=== PATIENT | female | born 1955 | race Caucasian/White ===

== ENCOUNTER 2018-06-18 06:19 | Inpatient (IN) | payer OTHER ==
[2018-06-14 09:06] VITALS: BMI 23.4
[2018-06-18] MEDS ORDERED: DEXAMETHASONE SOD PHOSPHATE 4 MG/1 ML VIAL IVPUSH PRN (07:36)
[2018-06-18] MEDS ORDERED: PROMETHAZINE HCL 25 MG/1 ML VIAL IVPB PRN (07:36)
[2018-06-18] MEDS ORDERED: ONDANSETRON 4 MG/2 ML VIAL IVPUSH PRN ×2 (07:36→10:58)
[2018-06-18] MEDS ORDERED: GENTAMICIN SO4 80 MG/2 ML VIAL ONE (07:44)
[2018-06-18] MEDS ORDERED: THROMBIN (BOVINE) 20,000 UNIT VIAL TP ONE (07:44)
[2018-06-18] MEDS ORDERED: LIDOCAINE 1%/EPI 1:100000 (20 ML MULTI DOSE VIAL) ONE (07:44)
[2018-06-18] MEDS ORDERED: LACTATED RINGERS SOLUTION 1,000 ML IV SCH (07:45)
[2018-06-18] MEDS ORDERED: ROCURONIUM BROMIDE 50 MG/5 ML VIAL ONE (08:06)
[2018-06-18] MEDS ORDERED: MIDAZOLAM HCL 2 MG/2 ML SINGLE DOSE VIAL ONE (08:06)
[2018-06-18] MEDS ORDERED: PROPOFOL 20 ML ONE (08:06)
--- NOTE | 2018-06-18 08:22 | HP ---
History & Physical Update - History History: No Change - Physical Physical: No Change - Assessment Assessment: No Change - Plan Plan: No Change
[2018-06-18] MEDS ORDERED: LIDOCAINE HCL/PF 2% SDV 5ML VIAL ONE (08:25)
[2018-06-18] MEDS ORDERED: ceFAZolin SODIUM 1 GM VIAL ONE ×2 (08:39→18:26)
[2018-06-18] MEDS ORDERED: SODIUM CHLORIDE 0.9% P/F 10 ML VIAL IJ ONE (08:39)
[2018-06-18] MEDS ORDERED: VANCOMYCIN 1,000 MG VIAL (RESTRICTED TO ID ONLY) ONE (08:39)
[2018-06-18] MEDS ORDERED: ceFAZolin SODIUM 1 GM VIAL IVPB ONE (08:41)
[2018-06-18] MEDS ORDERED: VANCOMYCIN 1,000 MG VIAL (RESTRICTED TO ID ONLY) IVPB ONE (08:44)
[2018-06-18] MEDS ORDERED: LIDOCAINE 1%/EPI 1:100000 (50 ML MULTI DOSE VIAL) INF ONE (08:46)
[2018-06-18] MEDS ORDERED: ePHEDrine SULFATE 50 MG/1 ML AMPULE ONE (09:26)
[2018-06-18] MEDS ORDERED: THROMBIN (BOVINE) 5,000 UNIT VIAL TP ONE (09:49)
[2018-06-18] MEDS ORDERED: GLYCOPYRROLATE 0.2 MG/1 ML VIAL ONE (10:10)
[2018-06-18] MEDS ORDERED: NEOSTIGMINE METHYLSULFATE 0.5 MG/ML - 10 ML MDV ONE (10:11)
--- NOTE | 2018-06-18 10:50 | OP ---
Operative Note - Note: Operative Date: 06/18/18 Pre-Operative Diagnosis: Cervical spondylosis and instability Operation: Cervical C5/C6 Corpectomies, Anabaptist of Major Lordosis with moravian using Peek cage and anterior plating Post-Operative Diagnosis: Same as Pre-op Surgeon: Joseph Sousa Facility Designer: Shelton Cobos Anesthesiologist/SENIOR ECOLOGIST: Alfa Miranda Anesthesia: General Estimated Blood Loss (mls): 800 Drains & Tubes with Location: Right anterior neck Fluid Volume Replaced (mls): 1,500 Operative Report Dictated: Yes
--- NOTE | 2018-06-18 10:54 | SURG ---
Surgery Causticiser Note Causticiser: Shelton Cobos PA-C Date of Service: 06/18/18 Diagnosis: Cervical spondylosis and instability Procedure: Cervical C5/C6 Corpectomies, Rastafari of Major Lordosis with zoroastrian using Peek cage and anterior plating I was present for the entirety of the operative procedure. For further detail, please refer to operative report.
[2018-06-18] MEDS ORDERED: morphine SULFATE 4 MG/ML VIAL IVPUSH PRN (10:58)
[2018-06-18] MEDS ORDERED: HYDROmorphone *PCA* 10MG/50ML DISP.SYRIN PCA ONE ×2 (11:01→11:43)
[2018-06-18] MEDS: HYDROmorphone *PCA* 10MG/50ML DISP.SYRIN PCA SCH (11:50)
[2018-06-18] MEDS ORDERED: MIDAZOLAM HCL 2 MG/2 ML SINGLE DOSE VIAL IVPUSH ONE ×2 (12:07→13:18)
[2018-06-18] MEDS ORDERED: HEPARIN NA (PORCINE) 5,000 UNITS/ML 1ML VIAL ONE (13:54)
[2018-06-18] MEDS: LACTATED RINGERS SOLUTION 1,000 ML/1,000 ML INFUS.BAG IV SCH ×2 (14:00→16:21)
[2018-06-18] MEDS: HEPARIN NA (PORCINE) 5,000 UNITS/ML 1ML VIAL SQ SCH ×2 (14:00→21:17)
[2018-06-18] MEDS ORDERED: PROMETHAZINE HCL 25 MG/1 ML VIAL ONE (14:13)
[2018-06-18] MEDS: DOCUSATE SODIUM 100 MG CAPSULE (FP) PO SCH ×2 (16:21→21:16)
[2018-06-18] MEDS ORDERED: DEXTROSE 5%-WATER - 50 ML IVPB ONE (18:28)
[2018-06-18] MEDS: CEFAZOLIN 1 GM in DEXTROSE 5%-WATER - 50 ML IVPB SCH (18:31)
[2018-06-18] MEDS ORDERED: PT OWN MED DRAWER 7, Y5N ONE (20:52)
[2018-06-18] MEDS: SERTRALINE HCL 50 MG TABLET (FP) PO SCH (21:18)
[2018-06-19] MEDS ORDERED: DEXTROSE 5%-WATER - 50 ML IVPB ONE ×3 (01:26→17:10)
[2018-06-19] MEDS ORDERED: ceFAZolin SODIUM 1 GM VIAL ONE ×3 (01:26→17:10)
[2018-06-19] MEDS: CEFAZOLIN 1 GM in DEXTROSE 5%-WATER - 50 ML IVPB SCH ×3 (01:40→17:17)
[2018-06-19] MEDS: HEPARIN NA (PORCINE) 5,000 UNITS/ML 1ML VIAL SQ SCH ×3 (07:01→21:54)
[2018-06-19] MEDS: DOCUSATE SODIUM 100 MG CAPSULE (FP) PO SCH ×3 (07:01→21:55)
--- NOTE | 2018-06-19 08:14 | PROC ---
Procedure Note Procedure: 62yo F s/p C5-6 anterior corpectomy, cage and plating POD 1. Pt seen at bedside , states that her pain is well controlled. Denies weakness or numbness in her extremities. Pt states that she is not really getting out of bed because she is nervous about moving. Pt denies n/v, fever, chills. PE: Gen: A&O x3 Resp: breathing comfortably Heart: RRR Neck: C-collar in place with clean dressing on anterior surface, Drain in place with serosanguinous drainage. Output: 125ml Ext: no weakness, numbness, full ROM. No edema.
[2018-06-19] MEDS: HYDROmorphone *PCA* 10MG/50ML DISP.SYRIN PCA SCH (08:18)
[2018-06-19 08:20] LABS: HEMATOCRIT 28.1 % (32.4-45.2); HEMOGLOBIN 9.6 GM/dL (10.7-15.3); MCH 30.8 pg (25.7-33.7); MCHC 34.1 g/dl (32.0-36.0); MEAN CELL VOLUME 90.4 fl (80-96); MEAN PLT VOLUME 9.1 fl (7.5-11.1); PLATELET COUNT 155 K/MM3 (134-434); RBC 3.11 M/mm3 (3.60-5.2); RDW 12.8 % (11.6-15.6); WHITE BLOOD COUNT 6.7 K/mm3 (4.0-10.0)
--- NOTE | 2018-06-19 08:44 | PN ---
Progress Note (short form) - Note Progress Note: 62yo F s/p C5-6 anterior corpectomy, cage and plating POD1. Pt seen at bedside with cervical collar in place. Pt states that pain is well controlled. Denies weakness and numbness in extremities. No n/v, fever, chills. Pt has not really been ambulatory as she is nervous about getting out of bed. PE: Gen: A&O x3 Resp: breathing comfortably Neck: C-collar in place, with anterior dressing present, clean. Drain present with serosanguinous drainage. Output: 125ml Ext: No weakness or numbness, full ROM, no edema. 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 -OOB/ambulate, Physical therapy would be appreciated. -incentive spirometry Code(s): Z98.1 - ARTHRODESIS STATUS
[2018-06-19 08:59] LABS: CHLORIDE 106 mmol/L (98-107); SODIUM 144 mmol/L (136-145)
[2018-06-19 09:09] LABS: ANION GAP 9 MMOL/L (8-16); BLOOD UREA NITROGEN 12 mg/dL (7-18); CALCIUM 8.2 mg/dL (8.5-10.1); CO2 29 mmol/L (21-32); CREATININE 0.5 mg/dL (0.55-1.02); GLUCOSE,RANDOM 85 mg/dL (74-106)
--- NOTE | 2018-06-19 09:09 | PN ---
Progress Note, Physician Chief Complaint: EVENTS AND NOTES REVIEWED S/P C5-C6 FUSION POD #1 PATIENT IN BED AWAKE ALERT X 3 C/O PAIN 5/10 CONTROLLED WITH MEDS TOLERATING PO TODAY INCENTIVE SPIROMETER BEDSIDE VOIDING URINE [facility] - Current Medication List Current Medications: Active Medications Dexamethasone Sodium Phosphate (Decadron Injection -) 4 mg IVPUSH ONCE PRN PRN Reason: NAUSEA AND/OR VOMITING Diphenhydramine HCl (Benadryl Injection -) 12.5 mg IVPUSH ONCE PRN PRN Reason: FOR ITCHING Diphenhydramine HCl (Benadryl -) 25 mg PO Q6H PRN PRN Reason: FOR ITCHING Docusate Sodium (Colace -) 100 mg PO TID [facility] Last Admin: 06/19/18 07:01 Dose: 100 mg Ferrous Sulfate (Feosol -) 325 mg PO DAILY [facility] Folic Acid (Folic Acid -) 1 mg PO DAILY [facility] Heparin Sodium (Porcine) (Heparin -) 5,000 unit SQ TID [facility] Last Admin: 06/19/18 07:01 Dose: 5,000 unit Hydromorphone HCl (Dilaudid Conceptor -) 10 mg COTTON HEADER COTTON HEADER [facility]; Protocol Stop: 06/25/18 07:36 Last Admin: 06/19/18 08:18 Dose: Not Given Cefazolin Sodium 1 gm/ (Dextrose) 50 mls @ 100 mls/hr IVPB Q8H-IV [facility] Last Admin: 06/19/18 01:40 Dose: 100 mls/hr Ondansetron HCl (Zofran Injection) 4 mg IVPUSH Q4H PRN PRN Reason: NAUSEA AND/OR VOMITING Ondansetron HCl (Zofran Injection) 4 mg IVPUSH Q6H PRN PRN Reason: NAUSEA Oxycodone HCl (Roxicodone -) 5 mg PO Q4H PRN PRN Reason: PAIN LEVEL 1-5 Oxycodone HCl (Roxicodone -) 10 mg PO Q4H PRN PRN Reason: PAIN LEVEL 6-10 Promethazine HCl (Phenergan Injection -) 12.5 mg IVPB Q6H PRN PRN Reason: NAUSEA AND/OR VOMITING Last Admin: 06/18/18 14:15 Dose: 12.5 mg Sertraline HCl (Zoloft -) 25 mg PO [facility] Last Admin: 06/18/18 21:18 Dose: 25 mg - Objective Vital Signs: Vital Signs Temperature 98.9 F 06/19/18 06:00 Pulse Rate 85 06/19/18 06:00 Respiratory Rate 20 06/19/18 06:00 Blood Pressure 123/72 06/19/18 06:00 O2 Sat by Pulse Oximetry (%) 99 06/18/18 21:00 Constitutional: Yes: Mild Distress Eyes: Yes: WNL HENT: Yes: Other Neck: Yes: Other (CERVICAL NECK COLLAR WITH CLEAN DRESSING) Cardiovascular: Yes: WNL Respiratory: Yes: WNL Gastrointestinal: Yes: WNL Genitourinary: Yes: [facility] Present Musculoskeletal: Yes: Other Extremities: Yes: WNL Edema: No Integumentary: Yes: WNL Wound/Incision: Yes: Dressing Dry and Intact Neurological: Yes: Pre-Existing Deficit, Other ...Motor Strength: LUE, RUE Psychiatric: Yes: WNL Labs: CBC, BMP 06/19/18 07:00 06/19/18 07:00 Problem List - Problems (1) S/P cervical spinal fusion Code(s): Z98.1 - ARTHRODESIS STATUS Assessment/Plan POD #1 CERVICAL SPINE FUSION DVT PROPHYLAXIS TOLERATING PO OOB TO CHAIR PT BERNARD [facility] TODAY CHECK LABS CAN STAY UNTIL TOMORROW FOR CARE AND SUPPORT PO MEDS FOR PAIN STOOL SOFTENERS
[2018-06-19] MEDS: FERROUS SO4 325 MG TABLET (FP) PO SCH (09:28)
[2018-06-19] MEDS: FOLIC ACID 1 MG TABLET (FP) PO SCH (09:28)
[2018-06-19] MEDS: POLYETHYLENE GLYCOL 3350 119 GM BTL PO SCH (11:26)
[2018-06-19] MEDS: diphenhydrAMINE HCL 25 MG CAPSULE (FP) PO PRN ×2 (12:01→23:42)
--- NOTE | 2018-06-19 13:38 | PN ---
Progress Note, Physician Chief Complaint: day #1 s/p C5-6 corpectomy. Pain well controlled, was asked to d/c PROFESSOR OF PATHOLOGY so they can start PO pain meds. No anethetic issues/complications - Current Medication List Current Medications: Active Medications Dexamethasone Sodium Phosphate (Decadron Injection -) 4 mg IVPUSH ONCE PRN PRN Reason: NAUSEA AND/OR VOMITING Diphenhydramine HCl (Benadryl Injection -) 12.5 mg IVPUSH ONCE PRN PRN Reason: FOR ITCHING Diphenhydramine HCl (Benadryl -) 25 mg PO Q6H PRN PRN Reason: FOR ITCHING Last Admin: 06/19/18 12:01 Dose: 25 mg Docusate Sodium (Colace -) 100 mg PO TID [facility] Last Admin: 06/19/18 07:01 Dose: 100 mg Ferrous Sulfate (Feosol -) 325 mg PO DAILY [facility] Last Admin: 06/19/18 09:28 Dose: 325 mg Folic Acid (Folic Acid -) 1 mg PO DAILY [facility] Last Admin: 06/19/18 09:28 Dose: 1 mg Heparin Sodium (Porcine) (Heparin -) 5,000 unit SQ TID [facility] Last Admin: 06/19/18 07:01 Dose: 5,000 unit Cefazolin Sodium 1 gm/ (Dextrose) 50 mls @ 100 mls/hr IVPB Q8H-IV [facility] Last Admin: 06/19/18 09:28 Dose: 100 mls/hr Ondansetron HCl (Zofran Injection) 4 mg IVPUSH Q4H PRN PRN Reason: NAUSEA AND/OR VOMITING Ondansetron HCl (Zofran Injection) 4 mg IVPUSH Q6H PRN PRN Reason: NAUSEA Oxycodone HCl (Roxicodone -) 5 mg PO Q4H PRN PRN Reason: PAIN LEVEL 1-5 Oxycodone HCl (Roxicodone -) 10 mg PO Q4H PRN PRN Reason: PAIN LEVEL 6-10 Polyethylene Glycol (Miralax (For Daily Use) -) 17 gm PO DAILY [facility] Last Admin: 06/19/18 11:26 Dose: 17 gm Promethazine HCl (Phenergan Injection -) 12.5 mg IVPB Q6H PRN PRN Reason: NAUSEA AND/OR VOMITING Last Admin: 06/18/18 14:15 Dose: 12.5 mg Senna (Senna -) 1 tab PO HS [facility] Sertraline HCl (Zoloft -) 25 mg PO HS [facility] Last Admin: 06/18/18 21:18 Dose: 25 mg - Objective Vital Signs: Vital Signs Temperature 98.9 F 06/19/18 09:00 Pulse Rate 84 06/19/18 09:00 Respiratory Rate 20 06/19/18 09:00 Blood Pressure 116/68 06/19/18 09:00 O2 Sat by Pulse Oximetry (%) 99 06/18/18 21:00 Labs: CBC, BMP 06/19/18 07:00 06/19/18 07:00
[2018-06-19] MEDS: oxyCODONE HCL 5 MG TABLET PO PRN ×2 (14:28→17:32)
[2018-06-19] MEDS: SERTRALINE HCL 50 MG TABLET (FP) PO SCH (21:55)
[2018-06-19] MEDS ORDERED: MORPHINE SULFATE 2 MG/ML VIAL IVPUSH ONE (22:00)
[2018-06-19] MEDS ORDERED: SENNOSIDES 8.6MG TABLET (FP) PO SCH (22:00)
[2018-06-20] MEDS ORDERED: DEXTROSE 5%-WATER - 50 ML IVPB ONE ×2 (01:54→10:24)
[2018-06-20] MEDS ORDERED: ceFAZolin SODIUM 1 GM VIAL ONE ×2 (01:54→10:24)
[2018-06-20] MEDS: CEFAZOLIN 1 GM in DEXTROSE 5%-WATER - 50 ML IVPB SCH ×2 (01:57→10:32)
[2018-06-20] MEDS: oxyCODONE HCL 5 MG TABLET PO PRN ×3 (02:19→10:32)
[2018-06-20] MEDS: HEPARIN NA (PORCINE) 5,000 UNITS/ML 1ML VIAL SQ SCH ×2 (05:56→13:51)
[2018-06-20] MEDS: DOCUSATE SODIUM 100 MG CAPSULE (FP) PO SCH ×2 (05:57→13:54)
[2018-06-20] MEDS ORDERED: oxyCODONE HCL 5 MG TABLET PO ONE (06:30)
[2018-06-20] MEDS: diphenhydrAMINE HCL 25 MG CAPSULE (FP) PO PRN (06:32)
--- NOTE | 2018-06-20 08:40 | PN ---
Progress Note (short form) - Note Progress Note: Surgery POD #2 C5/C6 Corpectomies, Baptist of Major Lordosis with anabaptist using Peek cage and anterior plating seen and examined at bedside. Patient c/o pain over incision site and radiating over b/l shoulder but pain is controlled with Oxy 10mg Q4. She denies any pain or numbness radiating into arms or hands. She is tolerating her regular diet and denies any CP, SOB, N/V/D H/A, fever or chills Vital Signs Temp 99.6 F 06/20/18 05:00 Pulse 76 06/20/18 05:00 Resp 20 06/20/18 05:00 BP 127/74 06/20/18 05:00 Pulse Ox 99 06/19/18 21:00 Intake & Output 06/19/18 06/19/18 06/20/18 11:59 23:59 11:59 Intake Total 900 340 Output Total 940 1580 11 Balance -940 -680 329 Intake: IVPB 200 100 Oral 700 240 Output: Drainage 40 30 11 Right Upper Back 40 30 11 Urine 900 1550 Will 900 650 Void 900 Other: Voiding Method Toilet Toilet # Unmeasured Voids Void 2 Bowel Movement No PE: A&Ox3, NAD unlabored resp on RA B/L UE 5/5 post closing specialist strength5/5 shoulders, biceps and triceps. Anterior neck incision c/d/i with dermabond, surrounding tissue intact with no erythema, edema or evidence of collection or d/c, J/P drain removed with tip fully intact and drain site c/d/i with no d/c. B/L LE compartments soft, supple and non-tender with +2 DP pulses. Problem List - Problems (1) S/P cervical spinal fusion Assessment/Plan: POD #2 ACDF doing well and pain controlled 1) Continue C-collar 23hours/day 2) OOB as tolerated 3) Pain control with Oxycodone, ok to d/c on Percocet 4) plan to d/c home today 5) f/u with Dr Sousa as scheduled Code(s): Z98.1 - ARTHRODESIS STATUS
--- NOTE | 2018-06-20 09:57 | PN ---
Progress Note, Physician - Current Medication List Current Medications: Active Medications Dexamethasone Sodium Phosphate (Decadron Injection -) 4 mg IVPUSH ONCE PRN PRN Reason: NAUSEA AND/OR VOMITING Diphenhydramine HCl (Benadryl Injection -) 12.5 mg IVPUSH ONCE PRN PRN Reason: FOR ITCHING Diphenhydramine HCl (Benadryl -) 25 mg PO Q6H PRN PRN Reason: FOR ITCHING Last Admin: 06/20/18 06:32 Dose: 25 mg Docusate Sodium (Colace -) 100 mg PO TID [facility] Last Admin: 06/20/18 05:57 Dose: 100 mg Ferrous Sulfate (Feosol -) 325 mg PO DAILY [facility] Last Admin: 06/19/18 09:28 Dose: 325 mg Folic Acid (Folic Acid -) 1 mg PO DAILY [facility] Last Admin: 06/19/18 09:28 Dose: 1 mg Heparin Sodium (Porcine) (Heparin -) 5,000 unit SQ TID [facility] Last Admin: 06/20/18 05:56 Dose: 5,000 unit Cefazolin Sodium 1 gm/ (Dextrose) 50 mls @ 100 mls/hr IVPB Q8H-IV [facility] Last Admin: 06/20/18 01:57 Dose: 100 mls/hr Ondansetron HCl (Zofran Injection) 4 mg IVPUSH Q4H PRN PRN Reason: NAUSEA AND/OR VOMITING Ondansetron HCl (Zofran Injection) 4 mg IVPUSH Q6H PRN PRN Reason: NAUSEA Oxycodone HCl (Roxicodone -) 5 mg PO Q4H PRN PRN Reason: PAIN LEVEL 1-5 Last Admin: 06/20/18 05:56 Dose: 5 mg Oxycodone HCl (Roxicodone -) 10 mg PO Q4H PRN PRN Reason: PAIN LEVEL 6-10 Last Admin: 06/19/18 17:32 Dose: 10 mg Polyethylene Glycol (Miralax (For Daily Use) -) 17 gm PO DAILY [facility] Last Admin: 06/19/18 11:26 Dose: 17 gm Promethazine HCl (Phenergan Injection -) 12.5 mg IVPB Q6H PRN PRN Reason: NAUSEA AND/OR VOMITING Last Admin: 06/18/18 14:15 Dose: 12.5 mg Senna (Senna -) 1 tab PO HS [facility] Last Admin: 06/19/18 21:55 Dose: 1 tab Sertraline HCl (Zoloft -) 25 mg PO [facility] Last Admin: 06/19/18 21:55 Dose: 25 mg - Objective Vital Signs: Vital Signs Temperature 99.6 F 06/20/18 05:00 Pulse Rate 76 06/20/18 05:00 Respiratory Rate 20 06/20/18 05:00 Blood Pressure 127/74 06/20/18 05:00 O2 Sat by Pulse Oximetry (%) 99 06/19/18 21:00 Labs: CBC, BMP 06/19/18 07:00 06/19/18 07:00 Problem List - Problems (1) S/P cervical spinal fusion Code(s): Z98.1 - ARTHRODESIS STATUS
[2018-06-20] MEDS: POLYETHYLENE GLYCOL 3350 119 GM BTL PO SCH (10:32)
[2018-06-20] MEDS: FERROUS SO4 325 MG TABLET (FP) PO SCH (10:32)
[2018-06-20] MEDS: FOLIC ACID 1 MG TABLET (FP) PO SCH (10:32)
[2018-06-20 12:14] VITALS: BP 131/76; PULSE 82; TEMP 99.2
[2018-06-20] MEDS ORDERED: BENZOCAINE/MENTH/CETYLPYRD CL 1 EACH LOZENGE MM ONE (13:45)
--- NOTE | 2018-06-21 15:44 | DS ---
"Physical Exam: SUBJECTIVE: POD #2 C5/C6 Corpectomies, Latter-Day of Major Lordosis with gnosticism using Peek cage and anterior plating seen and examined at bedside. Patient c/o pain over incision site and radiating over b/l shoulder but pain is controlled with Oxy 10mg Q4. She denies any pain or numbness radiating into arms or hands. She is tolerating her regular diet and denies any CP, SOB, N/V/D H/A, fever or chills OBJECTIVE: Vital Signs Temp 99.6 F 09//18 05:00 Pulse 76 06/20/18 05:00 Resp 20 06/20/18 05:00 BP 127/74 06/20/18 05:00 Pulse Ox 99 06/19/18 21:00 PHYSICAL EXAM PE: A&Ox3, NAD unlabored resp on RA B/L UE 5/5 cutting inspector strength5/5 shoulders, biceps and triceps. Anterior neck incision c/d/i with dermabond, surrounding tissue intact with no erythema, edema or evidence of collection or d/c, J/P drain removed with tip fully intact and drain site c/d/i with no d/c. B/L LE compartments soft, supple and non-tender with +2 DP pulses. LABS Laboratory Tests 09/05/18 09//18 07:00 07:00 WBC 6.7 RBC 3.11 L Hgb 9.6 L Hct 28.1 L Sodium 144 Potassium 4.0 Chloride 106 Carbon Dioxide 29 Anion Gap 9 BUN 12 Creatinine 0.5 L Creat Clearance w eGFR > 60 Random Glucose 85 Calcium 8.2 L HOSPITAL COURSE: The patient was admitted to the Med-Surg Unit after an elective repair of their cervical spondylolisthesis/instability, s/p C5/C6 corpectomy with CAGE and anterior fusion of C4-C7. A post operative CT scan was completed and the hardware was confirmed to be in satisfactory position. Narcotic and non-narcotic pain management control was achieved with an oral and IV approach. POD #2, the surgical drain was removed fully intact and without incident. Lucia-operative/post-operative IV ABX were administered. DVT prophylaxis was achieved with SCDs, early ambulation and heparin SQ. The patient ambulated with Physical Therapy and no services were recommended upon discharge. Narcotic scripts and or muscle relaxants were checked with [place] [employer] prior to escibe. The discharge instructions and an oral pain management plan were reviewed with the patient. All questions answered. Above plan discussed with Dr. Sousa and agreed. Date of Admission:06/18/18 Date of Discharge: 06/21/18 Minutes to complete discharge: 15 Discharge Summary Reason For Visit: CERVICAL SPONDYLOSIS & INSTABILITY Condition: Stable - Instructions Diet, Activity, Other Instructions: Post Operative Instructions Physical Activity Resume your normal everyday activity as tolerated. No heavy lifting or exercise until seen by your surgeon. You may walk unlimited amounts and climb stairs. You may resume driving the car when you feel safe and comfortable behind the wheel and you are no longer wearing your brace. Do not operate a vehicle while taking narcotic medication. Brace If you had neck surgery, wear surgical collar 23 hr/day. May remove prior to showering. May also remove temporarily while eating meals. Wound Care Keep your incision clean, dry and covered at all times. Apply an occlusive dressing (Saran wrap or Tegaderm) when showering to avoid getting your incision wet. Do not submerge incision or apply ointments or creams. The sagrario will be removed in the office in 10-14 days post-op. Diet There are no dietary restrictions. Eat healthy, high-fiber foods. Drink 6-8 glasses of liquid each day. This will assist in keeping your bowels regular. Pain Management You may take Tylenol or acetaminophen. Any pain prescription medication ordered should be taken as prescribed for moderate to severe pain. Call Dr Grant for any of the following: Severe pain not relieved by medication Fever of 101 or higher Excessive bleeding or drainage on dressing Inability to urinate Any chest pain or shortness of breath, seek Emergency Care. Call the office to confirm a post-operative appointment 7-10 days post-op Joseph Sousa MD [facility] [address] [place] [address] This report was requested by: Essie Vazquez | Reference #: [id number] 05/22/2018 05/22/2018 oxycodone-acetaminophen 5-325 mg tablet 90 30 Disposition: HOME - Home Medications Comprehensive Discharge Medication List: Ambulatory Orders Oxycodone HCl/Acetaminophen [Oxycodone-Acetaminophen 5-325] 1 each PO PRN PRN Sertraline HCl [Zoloft -] 25 mg PO HS 06/14/18 Oxycodone HCl/Acetaminophen [Percocet 5-325 mg Tablet] 1 - 2 tab PO Q4H PRN #30 tablet MDD 8 06/20/18 This patient is new to me today: No Emergency Visit: No Critical Care patient: No - Discharge Referral Referred to [facility] No"
== END 2018-06-20 15:13 | disposition home or self-care (01) | DRG 473 ==
LOC: JSAMEDAYSX 06:19 → EDSTATUS 12:00 → J8W 15:33
PROVIDERS: ADMIT Family Medicine; ATTEND Family Medicine
PROC: 0PB30ZZ Excision of Cervical Vertebra, Open Approach (ICD-10-PCS; 2018-06-18)
PROC: 0RG20A0 Fusion of 2 or more Cervical Vertebral Joints with Interbody Fusion Device, Anterior Approach, Anterior Column, Open Approach (ICD-10-PCS; principal; 2018-06-18 08:00)
DX: M47.12 Other spondylosis with myelopathy, cervical region (principal)
CPT/HCPCS: 36415; 72125-TC; 76000-TC-FY; 80048; 85027; 86850; 86900; 86901; 94760; 97116-GP; 97161-GP; J1644

== ENCOUNTER 2022-03-28 07:18 | Day surgery (SDC) | payer OTHER ==
[2022-03-27 11:02] VITALS: BMI 27.4
[2022-03-28] MEDS ORDERED: LIDOCAINE HCL/PF 2% SDV 5ML VIAL ONE (08:15)
[2022-03-28] MEDS ORDERED: PROPOFOL 20 ML ONE ×4 (08:15)
[2022-03-28 09:45] VITALS: TEMP 96.5
[2022-03-28 10:01] VITALS: BP 117/83; PULSE 80
== END 2022-03-28 10:12 | disposition home or self-care (01) ==
LOC: FASU-ENDO 07:18
PROVIDERS: ATTEND Internal Medicine Gastroenterology
PROC: 0DBL8ZX Excision of Transverse Colon, Via Natural or Artificial Opening Endoscopic, Diagnostic (ICD-10-PCS; 2022-03-28)
PROC: 0DBL8ZX Excision of Transverse Colon, Via Natural or Artificial Opening Endoscopic, Diagnostic (ICD-10-PCS; principal; 2022-03-28 08:57)
DX: Z12.11 Encounter for screening for malignant neoplasm of colon (principal); D12.2 Benign neoplasm of ascending colon; D12.3 Benign neoplasm of transverse colon; K64.1 Second degree hemorrhoids
CPT/HCPCS: 88305-TC